=== PATIENT | female | born 1980 | race Caucasian/White ===

== ENCOUNTER 2017-01-16 17:27 | Emergency (ER) | payer BC, MEDICAID ==
[2017-01-16] MEDS ORDERED: ALBUTEROL SULFATE/IPRATROPIUM 3 ML NEBU IH ONE ×3 (18:12→18:16)
--- NOTE | 2017-01-16 18:14 | ERNOTE ---
Date of Service: 01/16/17 Time Seen by Provider: 01/16/17 18:13 Stated Complaint: SOB Presenting Symptoms:: cough, runny nose Source: patient Exam Limitations: no limitations Immunizations: IMMUNIZATION HX Immunizations Up to Date Yes History of Influenza Vaccine No Hx Pneumococcal Vaccination No Allergies/Adverse Reactions: Allergies aripiprazole [From Abilify] Allergy (Severe, Verified 01/16/17 17:37) Anaphylaxis ciprofloxacin HCl [From Ciprodex] Allergy (Severe, Verified 01/16/17 17:37) Hives dexamethasone [From Ciprodex] Allergy (Severe, Verified 01/16/17 17:37) Hives vancomycin Allergy (Severe, Verified 01/16/17 17:37) Hives Home Medications: HOME MEDICATIONS Dextroamphetamine/Amphetamine [Adderall 30 mg Tablet] 30 mg PO DAILY 08/28/16 [ Last Taken Unknown] Ranitidine HCl [Zantac] 150 mg PO BID 08/29/16 [Last Taken Unknown] Acetaminophen [Tylenol] 650 mg PO Q6H PRN #0 tablet 08/30/16 [Last Taken Unknown ] Albuterol Sulfate/Ipratropium [Duoneb 2.5-0.5MG/3ML Soln] 3 ml IH QID PRN #100 nebu 08/30/16 [Last Taken Unknown] Guaifenesin/Pseudoephedrne HCl [Mucinex D ER 1,200-120 mg Tab] 1 tab PO Q12H PRN #24 tab 01/16/17 [Last Taken Unknown] predniSONE [Prednisone] 2 tab PO DAILY #14 tablet 01/16/17 [Last Taken Unknown] - History of Present Ilness Narrative: Presents with c/o SOB, wheezing, runny nose, and congestion for several days. Pt claims she has performed several neb treatments with Duoneb at home w/o lasting relief. Pt has h/o asthma and is a current smoker. Denies any fever, or chills. Timing: constant Severity: severe Modifying Factors - Improves: Reports: nothing Associated Symptoms: Reports: cough, shortness of breath, wheezing, nasal congestion, nasal drainage. Denies: dizziness, lightheadedness, earache, headache, sore throat, muscle aches, fever/chills Review of Systems - Review of Systems Constitutional: Present: no symptoms reported EYE: Present: no symptoms reported ENT: Present: See HPI Respiratory: Present: See HPI Cardiology: Present: no symptoms reported Gastrointestinal/Abdominal: Present: no symptoms reported Genitourinary: Present: no symptoms reported Musculoskeletal: Present: no symptoms reported Skin: Present: no symptoms reported Neurological: Present: no symptoms reported Endocrine: Present: no symptoms reported Hematologic/Lymphatic: Present: no symptoms reported Psych: Present: no symptoms reported All Other Systems: All systems neg except as marked - Patient's Past Medical History Patient History - Medical: ADHD Patient History - Cardiac/Respiratory: Asthma, COPD Patient History - Cancer: No Hx of Cancer Patient History - Surgical Procedures: Cholecystectomy, Patient History - Other: None - Family History Father Family History - Medical: , Cataracts, Liver Disease, Renal Failure, Other Mother Family History - Medical: History Unknown Family History - Cardiac/Respiratory: History Unknown Grandfather-Maternal Family History - Medical: Diabetes Type 2 Family History - Cardiac/Respiratory: Hypertension - Social History Living Situations: home Abuse History: No History of abuse Psych History: No pertinent hx Does anyone smoke in the home?: Yes Smoking Status: Current every day smoker Have you smoked in the past 12 months: Yes Alcohol Use: none Drug Use: none - Immunizations Immunizations Up to Date: Yes Hx Pneumococcal Vaccination: No History of Influenza Vaccine: No Physical Exam - Physical Exam General Appearance: Present: wd/wn, alert, no apparent distress Eye Exam: Normal inspection: bilateral, PERRL: bilateral, EOMI: bilateral Ears, Nose, Throat: Present: normal except -, nasal congestion, normal pharynx Neck: Present: normal inspection, nontender Respiratory: Present: no respiratory distress, wheezing Cardiovascular/Chest: Present: regular rate, rhythm, no murmur Neurological Exam: Present: alert, oriented Skin Exam: Present: normal color, warm/dry ED Progress - Vital Signs Patient's Vital Signs:: I have reviewed the patient's vital signs. Vital Signs: Vital Signs 01/16/17 17:33 Temperature 37.2 C Pulse Rate 97 Respiratory 20 Rate Blood Pressure 125/51 O2 Sat by Pulse 94 Oximetry - X-Ray X-Ray #1 X-Ray: chest - NAD Interpretation: Interp. by dc - NAD - Progress/Reassessment Chief Complaint: Upper Respiratory Symptoms Progress:: Improved - after treatment with xopenex and decadron. Departure - Departure Clinical Impression: Acute asthma exacerbation Qualifiers: Asthma severity: moderate persistent Qualified Code(s): J45.41 - Moderate persistent asthma with (acute) exacerbation URI (upper respiratory infection) Qualifiers: URI type: unspecified URI Qualified Code(s): J06.9 - Acute upper respiratory infection, unspecified Disposition: Home self-care Condition: Good Instructions: Upper Respiratory Infection, Adult, [id number], Asthma Attack Prevention Prescriptions: Guaifenesin/Pseudoephedrne HCl [Mucinex D ER 1,200-120 mg Tab] 1 tab PO Q12H PRN #24 tab PRN Reason: Congestion, runny nose, cough predniSONE [Prednisone] 2 tab PO DAILY #14 tablet
[2017-01-16] MEDS ORDERED: LEVALBUTEROL HCL 1.25 MG/3 ML AMPUL IH ONE ×2 (18:23→18:30)
[2017-01-16] MEDS ORDERED: DEXAMETHASONE SOD PHOSPHATE 10 MG/ML VIAL IM ONE (18:24)
[2017-01-16] MEDS ORDERED: DEXAMETHASONE SOD PHOSPHATE 10 MG/ML VIAL ONE (18:29)
--- OUTSIDE RECORDS SUMMARY | 2017-01-16 18:33 | XMS REPORT | Continuity of Care Document ---
:1980 Author Organization [facility] ([facility]) Address [place] [address] Phone [phone] Care Team Providers Name Role Phone Tim Kingston Primary Care Provider [phone] Source Comments This disclosure is being made pursuant to the Care Everywhere program, applicable federal and state laws, and may not contain all informaitonavailable regarding this patient.[facility] ([facility]) Active Allergies and Adverse Reactions No Known Allergies Current Medications Prescription Sig. Disp. Refills Start Date End Date Status VITS Take by mouth. Active W-CA,FE,FA,<1MG, ( VITAMIN PO) HYDROCODONE Take by mouth. Active BIT/HOMATROPINE (HYDROCODONE COMPOUND PO) ALBUTEROL INH Use by Active inhalation. Active Problems Currently Estimated Date of Delivery Comments Yes No additional problems on file Social History Tobacco Use Types Packs/Day Years Used Date Current Every Day Smoker Comments:7 per day- decreasing this Alcohol Use Drinks/Week oz/Week Comments No Last Filed Vital Signs Vital Sign Reading Time Taken Blood Pressure 135/66 06/04/2012 1:32 PM CDT Pulse 82 06/04/2012 1:32 PM CDT Temperature - - Respiratory Rate - - Height - - Weight 105 kg (231 lb 7.7 oz) 06/04/2012 1:32 PM CDT Body Mass Index - - Oxygen Saturation - - Plan of Care Health Maintenance Due Date Last Done Comments Hepatitis B Vaccine (1 of 3 - Primary Series) 1980 Tdap Vaccine 1991 Lipid Disorder Screening 1998 MMR Vaccine 1998 Td Vaccine 1998 Varicella Vaccine (1 of 2 - Adult - No Evidence of 1998 Immunity) Pneumococcal Vaccine (1 of 1 - PPSV23) 1999 Cervical Cancer Screening 2010 Influenza Vaccine: Seasonal (#1) 06/05/2016 Results from Last 3 Months Not on file
[2017-01-16 19:58] VITALS: BP 160/110
== END 2017-01-16 20:10 | disposition home or self-care (01) ==
LOC: ER 17:27
DX: J45.41 Moderate persistent asthma with (acute) exacerbation (principal); J06.9 Acute upper respiratory infection, unspecified; F17.210 Nicotine dependence, cigarettes, uncomplicated; F90.9 Attention-deficit hyperactivity disorder, unspecified type

== ENCOUNTER 2019-07-16 11:22 | Observation (INO) ==
[2019-07-16] MEDS ORDERED: ALBUTEROL SULFATE 2.5 MG/0.5 ML VIAL.NEB IH ONE ×2 (11:27→11:37)
--- NOTE | 2019-07-16 11:42 | ERNOTE ---
Dyspnea - General Presenting Symptoms: shortness of breath Time Seen by Provider: 07/16/19 11:27 Source: patient Exam Limitations: no limitations - Immun/Allergies/Home Medications Immunizations: IMMUNIZATION HX Immunizations Up to Date No: Unknown History of Influenza Vaccine More Information Required Hx Pneumococcal Vaccination Yes Allergies/Adverse Reactions: Allergies aripiprazole [From Abilify] Allergy (Severe, Verified 07/16/19 11:36) Anaphylaxis ciprofloxacin HCl [From Ciprodex] Allergy (Severe, Verified 07/16/19 11:36) Hives vancomycin Allergy (Severe, Verified 07/16/19 11:36) Hives Home Medications: HOME MEDICATIONS Dextroamphetamine/Amphetamine [Adderall 30 mg Tablet] 30 mg PO DAILY 08/28/16 [Last Taken Unknown] Acetaminophen [Tylenol] 650 mg PO Q6H PRN #0 tablet 08/30/16 [Last Taken Unknown] Albuterol Sulfate/Ipratropium [Duoneb 2.5-0.5MG/3ML Soln] 3 ml IH QID PRN #100 nebu 08/30/16 [Last Taken Unknown] Methylprednisolone [Medrol Dosepak] 4 mg PO DAILY #21 tab.ds.pk 03/21/18 [Last Taken Unknown] - History of Present Illness Narrative: Patient has been short of breath for a few days, symptoms got significantly worse last night, has a history of COPD and past smoking. She had been spacing out her advair as she had been without insurance for a while. She saw her PCP this morning and was given an injection of steroid and breathing treatment, states that her O2 sat was 88 initially, 94% at discharge. He symptoms continued to worsen so she came to the ER. It has been years since her symptoms were this bad and at that time she was diagnosed with pneumonia Severity: severe Treatment [employer]OR: albuterol Initiating event: Denies: upper resp illness, exposure to smoke Frequency of episodes: Reports: occassional episodes Modifying Factors - (Improves): Reports: albuterol Modifying Factors (Worsens): Reports: activity Associated Symptoms-Dyspnea: Reports: cough, wheezing. Denies: fever/chills, chest pain/discomfort Prior Treatment: Reports: recently seen, previous episodes Review of Systems - Review of Systems Constitutional: Present: chills, malaise. Absent: recent illness, fever ENT: Absent: nose congestion, sore throat Respiratory: Present: See HPI, shortness of breath, cough - mainly dry Cardiology: Absent: chest pain Gastrointestinal/Abdominal: Absent: nausea, vomiting, abdominal pain Genitourinary: Present: no symptoms reported Musculoskeletal: Absent: back pain Neurological: Absent: headache Medical History (Updated 07/16/19 @ 11:34 by Rachele Tran RN) COPD (chronic obstructive pulmonary disease) Surgical History: Surgical History (Updated 07/16/19 @ 11:35 by Rachele Tran, RN) History of delivery x5 History of cholecystectomy Family History: Family History (Updated 07/16/19 @ 11:35 by Rachele Tran RN) Other Unknown family medical history Social History: (Last Updated 07/16/19 @ 11:36 by Rachele Tran RN) Tobacco: Smoking Status: Former smoker second hand exposure: Yes who is smoking: other quit status: quit date established Alcohol: alcohol intake: never Substance Use: substance use type: does not use Physical Exam - Physical Exam General Appearance: Present: wd/wn, alert, moderate distress, obese Head Exam: Present: normal inspection Ears, Nose, Throat: Present: normal ENT inspection, normal pharynx Respiratory: Present: respiratory distress - increased work of breathing, speaks in 2 word sentences, decreased breath sounds, expiration (prolonged), wheezing Cardiovascular/Chest: Present: no murmur, tachycardia Gastrointestinal/Abdominal: Present: normal bowel sounds, nontender, nondistended, soft Extremity Exam: Present: no edema Neurological Exam: Present: alert, oriented, normal mood/affect Skin Exam: Present: normal color, warm/dry Progress - Results and Orders Patient's Lab Results:: I have reviewed the patient's lab results. - Vital Signs Patient's Vital Signs:: I have reviewed the patient's vital signs. Vital Signs: Vital Signs 07/16/19 11:30 07/16/19 11:38 Temperature 36.7 C Pulse Rate 129 H 129 H Respiratory Rate 33 H Blood Pressure 129/78 O2 Sat by Pulse Oximetry 92 L - EKG EKG #1 EKG: NSR - sinus tachycardia, no acute change EKG read: Interp. by me - X-Ray X-Ray #1 X-Ray: chest - no acute changes Interpretation: Reviewed by me - Progress/Reassessment Progress Note-Subjective: 07/16/19 11:50 slightly improved air movement after albuterol, slight working hard, two word sentences discussed with Dr Velázquez, gave patient 80mg depot medrol and terbutaline and well as Rx for antibiotic (which the patient didn't get a chance to fill yet) 07/16/19 13:08 improved air movement, patient still working hard with RR in 30's discussed test results which don't show pneumonia, will give steroids a little more time to start working and possibly discharge 07/16/19 13:[address] Franco, okay to admit for observation Departure Clinical Impression: Acute exacerbation of chronic obstructive airways disease - Departure Disposition: Still a patient Condition: Stable
[2019-07-16] MEDS ORDERED: METHYLPREDNISOLONE SOD SUCC/PF 125 MG/2 ML VIAL IV ONE (11:46)
[2019-07-16] MEDS ORDERED: ALBUTEROL SULFATE/IPRATROPIUM 3 ML NEBU IH ONE (11:49)
[2019-07-16 11:55] LABS: Hematocrit 42.1 % (37.0-47.0); Hemoglobin 14.1 gm/dL (12.5-16.0); Mean Cell Volume 92.1 fl (78-100); Mean Corpuscular Hemoglobin 30.9 pg (27-31); Mean Corpuscular Hgb Conc 33.5 g/dl (32-36); Mean Platelet Volume 9.1 fl (8-12.5); Neutrophil # 12.7 K/mm3 (1.3-6.0); Neutrophil % 79.1 % (42-75.0); Platelet Count 276 K/mm3 (150-450); Red Blood Count 4.57 M/mm3 (4.2-5.4); Red Cell Distribution Width 13.4 % (11.5-14.0); White Blood Count 16.1 K/mm3 (4.0-10.5)
[2019-07-16 12:13] LABS: Troponin I Less than 0.017 ng/mL (0.00-0.10)
[2019-07-16 12:15] LABS: ALT 66 U/L (19-67); AST 128 U/L (0-48); Albumin * 3.6 gm/dl (3.4-5.0); Alkaline Phosphatase * 107 U/L (50-170); Anion Gap 16.7 mmol/L (6.8-13.8); BNP * 16 pg/mL (5-150); BUN/Creatinine Ratio 16.5 (9.0-21.6); Bilirubin, Total 0.4 mg/dL (0.0-1.1); Blood Urea Nitrogen 14 mg/dL (3-23); Ca. Corrected For Albumin 8.7 mg/dL (8.4-10.2); Calcium * 8.7 mg/dL (7.9-10.9); Carbon Dioxide 22.1 mmol/L (24-32.6); Chloride 103 mmol/L (97-106); Glucose * 141 mg/dL (70-110); Potassium 3.8 mmol/L (3.4-4.6); Sodium 138 mmol/L (132-142); Total Protein 7.4 gm/dL (6.2-8.2)
[2019-07-16] MEDS ORDERED: ALBUTEROL SULFATE 2.5 MG/0.5 ML VIAL.NEB IH PRN (13:47)
[2019-07-16] MEDS ORDERED: ALBUTEROL SULFATE/IPRATROPIUM 3 ML NEBU IH SCH (14:00)
[2019-07-16] MEDS ORDERED: ALBUTEROL SULFATE/IPRATROPIUM 3 ML NEBU IH PRN (17:03)
--- NOTE | 2019-07-16 17:05 | HP ---
Chief Complaint - Chief Complaint Date of Service: 07/16/19 Time of Service: 16:23 Chief Complaint: Shortness of breath History of Present Illness: 88-year-old with history of COPD supposed to be on home oxygen and attention deficit disorder presents with complaints of shortness of breath x1 day. She presented to her primary care physician's office this morning and was treated with intramuscular steroid injection. When she returned home she told her she still could not breathe and had him bring her to the emergency department. Chest x-ray showed no acute cardiopulmonary disease. In the ER her vitals showed tachycardia tachypnea with increased work of breathing, oxygen saturation in the low 90s on room air. She also had a leukocytosis which may be secondary to the steroids. She was admitted for COPD exacerbation and was given an IV dose of Solu-Medrol and multiple breathing treatments she is been admitted for observation. Medical History (Updated 07/16/19 @ 17:05 by Lisa Franco MD) ADD (attention deficit disorder) COPD (chronic obstructive pulmonary disease) Surgical History: Surgical History (Updated 07/16/19 @ 11:35 by Rachele Tran RN) History of delivery x5 History of cholecystectomy Family History: Family History (Updated 07/16/19 @ 11:35 by Rachele Tran RN) Other Unknown family medical history Social History: (Last Reviewed 07/16/19 @ 13:55 by Beatrice Cook RN) Tobacco: Smoking Status: Former smoker second hand exposure: Yes who is smoking: other quit status: quit date established Alcohol: alcohol intake: never Substance Use: substance use type: does not use Review Of Systems (GEN) - Review of Systems Generalized/Overall Review: Absent: Chills, Fever EENTM: Absent: Eye Pain, Ear Pain Respiratory: Present: Cough, Shortness of Breath Cardiac: Absent: Chest Pain Abdominal: Absent: Abdominal Pain Misc: All systems neg except as marked Immunizations: IMMUNIZATION HX Immunizations Up to Date No: Unknown History of Influenza Vaccine More Information Required Hx Pneumococcal Vaccination Yes Allergies/Adverse Reactions: Allergies Allergy/AdvReac Type Severity Reaction Status Date / Time aripiprazole [From Abilify] Allergy Severe Anaphylaxis Verified 07/16/19 13:56 ciprofloxacin HCl Allergy Severe Hives Verified 07/16/19 13:56 [From Ciprodex] vancomycin Allergy Severe Hives Verified 07/16/19 13:56 Home Medications: HOME MEDICATIONS Albuterol Sulfate/Ipratropium [Duoneb 2.5-0.5MG/3ML Soln] 3 ml IH QID PRN #100 nebu 08/30/16 [Last Taken Unknown] Albuterol Sulfate [Albuterol Sulfate Hfa] 8.5 gm INHALATION PRN 07/16/19 [Last Taken Unknown] Fluticasone Propion/Salmeterol [Advair 250-50 Diskus] 1 puff INHALATION BID 07/16/19 [Last Taken Unknown] Montelukast Sodium [Singulair] 10 mg PO DAILY 07/16/19 [Last Taken Unknown] Exam - Exam Vital Signs: Vital Signs - Last Taken Temp 37.1 C 07/16/19 14:28 Pulse 102 H 07/16/19 14:33 Resp 28 H 07/16/19 14:33 BP 143/86 H 07/16/19 14:28 Pulse Ox 91 L 07/16/19 14:28 Constitutional: Present: Alert, Cooperative, Well developed, Well nourished, No distress, Obese ENT Exam: Present: hearing grossly normal Eye Exam: bilateral eye: normal inspection, PERRL Neck: Present: trachea midline. Absent: lymphadenopathy (R), lymphadenopathy (L) Back Exam: Present: normal inspection, no CVA tenderness, no vertebral tenderness Respiratory: Present: no accessory muscle use, wheezing - Diffuse expiratory wheezing throughout all lung sherman. Absent: crackles, rhonchi Cardiovascular/Chest: Present: no edema, no murmur, tachycardia Peripheral Pulses: dorsalis-pedis (R): 2+, dorsalis-pedis (L): 2+ Abdomen: Present: Normal bowel sounds, soft, nontender, obese Extremity: Present: no pedal edema Skin Exam: Present: normal color, warm/dry Neurologic: Present: alert, normal mood/affect Appearance: Present: appropriate appearance, appropriate insight Eye contact: Present: cooperative, good eye contact Thoughts: Present: normal thought pattern, normal mood /affect Diagnostic Studies: Abnormal Lab Results 07/16/19 07/16/19 Range/Units 11:48 11:48 WBC 16.1 H (4.0-10.5) K/mm3 Immature Gran % (Auto) 0.90 H (0.001-0.429) % Immature Gran # (Auto) 0.15 H (0.000-0.0310) K/mm3 Neutrophils % 79.1 H (42-75.0) % Lymphocytes % 10.4 L (20-51) % Eosinophils % 3.9 H (0.0-3.0) % Neutrophils # 12.7 H (1.3-6.0) K/mm3 Carbon Dioxide 22.1 L (24-32.6) mmol/L Anion Gap 16.7 H (6.8-13.8) mmol/L Random Glucose 141 H (70-110) mg/dL AST 128 H (0-48) U/L Laboratory Results WBC 16.1 K/mm3 (4.0-10.5) H 07/16/19 11:48 RBC 4.57 M/mm3 (4.2-5.4) 07/16/19 11:48 Hgb 14.1 gm/dL (12.5-16.0) 07/16/19 11:48 Hct 42.1 % (37.0-47.0) 07/16/19 11:48 MCV 92.1 fl (78-100) 07/16/19 11:48 MCH 30.9 pg (27-31) 07/16/19 11:48 MCHC 33.5 g/dl (32-36) 07/16/19 11:48 RDW 13.4 % (11.5-14.0) 07/16/19 11:48 Plt Count 276 K/mm3 (150-450) 07/16/19 11:48 MPV 9.1 fl (8-12.5) 07/16/19 11:48 Immature Gran % (Auto) 0.90 % (0.001-0.429) H 07/16/19 11:48 Immature Gran # (Auto) 0.15 K/mm3 (0.000-0.0310) H 07/16/19 11:48 79.1 % (42-75.0) H 07/16/19 11:48 10.4 % (20-51) L 07/16/19 11:48 5.3 % (0.0-9) 07/16/19 11:48 3.9 % (0.0-3.0) H 07/16/19 11:48 0.4 % (0.0-1.0) 07/16/19 11:48 Nucleated RBC % 0.0 k/mm3 (0-1) 07/16/19 11:48 12.7 K/mm3 (1.3-6.0) H 07/16/19 11:48 1.67 k/mm3 (1.5-3.5) 07/16/19 11:48 0.9 k/mm3 (0.0-1.0) 07/16/19 11:48 0.6 k/mm3 (0.0-0.7) 07/16/19 11:48 Absolute Basophils 0.1 k/mm3 (0.0-0.1) 07/16/19 11:48 Sodium 138 mmol/L (132-142) 07/16/19 11:48 139 mmol/L (130-142) 07/16/19 11:48 Potassium 3.8 mmol/L (3.4-4.6) 07/16/19 11:48 Chloride 103 mmol/L (97-106) 07/16/19 11:48 Carbon Dioxide 22.1 mmol/L (24-32.6) L 07/16/19 11:48 16.7 mmol/L (6.8-13.8) H 07/16/19 11:48 BUN 14 mg/dL (3-23) 07/16/19 11:48 0.85 mg/dL (0.4-1.4) 07/16/19 11:48 Est GFR (Non-Af Amer) 80 mL/min (60-130) 07/16/19 11:48 16.5 (9.0-21.6) 07/16/19 11:48 141 mg/dL (70-110) H 07/16/19 11:48 Calcium 8.7 mg/dL (7.9-10.9) 07/16/19 11:48 Calcium Adj for Albumin 8.7 mg/dL (8.4-10.2) 07/16/19 11:48 0.4 mg/dL (0.0-1.1) 07/16/19 11:48 AST 128 U/L (0-48) H 07/16/19 11:48 ALT 66 U/L (19-67) 07/16/19 11:48 107 U/L (50-170) 07/16/19 11:48 Less than 0.017 ng/mL (0.00-0.10) 07/16/19 11:48 B-Natriuretic Peptide 16 pg/mL (5-150) 07/16/19 11:48 7.4 gm/dL (6.2-8.2) 07/16/19 11:48 3.6 gm/dl (3.4-5.0) 07/16/19 11:48 Assessment/Plan - Narrative Narrative: 88-year-old with history of COPD supposed to be on home oxygen and attention deficit disorder presents with complaints of shortness of breath x1 day. In the ER her vitals showed tachycardia tachypnea with increased work of breathing, oxygen saturation in the low 90s on room air. She also had a leukocytosis which may be secondary to the steroids. She was admitted for COPD exacerbation and wa s given an IV dose of Solu-Medrol and multiple breathing treatments she is been admitted for observation. She feels better after getting the Solu-Medrol and duo nebs. Continue with duo nebs as needed I will start her on prednisone 40 mg daily for 5 more days. - Assessment/Plan (1) Respiratory distress, acute Problem: Acute (2) Asthma Problem: Acute Qualifiers: Asthma severity: unspecified severity Asthma complication type: with acute exacerbation Qualified Code(s): J45.901 - Unspecified asthma with (acute) exacerbation (3) Acute exacerbation of chronic obstructive airways disease Problem: Acute (4) ADHD (attention deficit hyperactivity disorder) Problem: Chronic Qualifiers: Attention deficit-hyperactivity disorder type: predominantly inattentive Qualified Code(s): F90.0 - Attention-deficit hyperactivity disorder, predominantly inattentive type
[2019-07-16] MEDS ORDERED: ALBUTEROL SULFATE 200 PUFF INHALER IH SCH (17:15)
[2019-07-16] MEDS: ALBUTEROL SULFATE/IPRATROPIUM 3 ML NEBU IH SCH (18:12)
[2019-07-16] MEDS: FLUTICASONE PROPION/SALMETEROL 14 PUFF DISK.W.DEV IH SCH (21:08)
[2019-07-16] MEDS: guaiFENesin/DEXTROMETHORPHAN SYRUP PO PRN (21:19)
[2019-07-16] MEDS ORDERED: MONTELUKAST SODIUM 10 MG TABLET PO SCH (21:45)
[2019-07-17] MEDS: ALBUTEROL SULFATE/IPRATROPIUM 3 ML NEBU IH SCH ×3 (00:21→14:40)
[2019-07-17] MEDS: guaiFENesin/DEXTROMETHORPHAN SYRUP PO PRN (02:53)
[2019-07-17 05:39] LABS: Hematocrit 40.8 % (37.0-47.0); Hemoglobin 13.5 gm/dL (12.5-16.0); Mean Cell Volume 91.5 fl (78-100); Mean Corpuscular Hemoglobin 30.3 pg (27-31); Mean Corpuscular Hgb Conc 33.1 g/dl (32-36); Mean Platelet Volume 9.4 fl (8-12.5); Neutrophil # 15.1 K/mm3 (1.3-6.0); Neutrophil % 86.7 % (42-75.0); Platelet Count 319 K/mm3 (150-450); Red Blood Count 4.46 M/mm3 (4.2-5.4); Red Cell Distribution Width 13.5 % (11.5-14.0); White Blood Count 17.4 K/mm3 (4.0-10.5)
[2019-07-17 05:57] LABS: Albumin * 3.5 gm/dl (3.4-5.0); Anion Gap 15.4 mmol/L (6.8-13.8); BUN/Creatinine Ratio 10.6 (9.0-21.6); Bilirubin, Total 0.3 mg/dL (0.0-1.1); Ca. Corrected For Albumin 9.3 mg/dL (8.4-10.2); Calcium * 9.2 mg/dL (7.9-10.9); Carbon Dioxide 23.9 mmol/L (24-32.6); Potassium 4.3 mmol/L (3.4-4.6); Total Protein 7.2 gm/dL (6.2-8.2)
[2019-07-17] MEDS: FLUTICASONE PROPION/SALMETEROL 14 PUFF DISK.W.DEV IH SCH (08:41)
[2019-07-17] MEDS ORDERED: predniSONE 20 MG TABLET PO SCH (09:00)
[2019-07-17] MEDS ORDERED: MONTELUKAST SODIUM 10 MG TABLET PO SCH (09:00)
--- NOTE | 2019-07-17 10:30 | DS ---
(1) Respiratory distress, acute Problem: Resolved (2) Asthma Problem: Acute Qualifiers: Asthma severity: unspecified severity Asthma complication type: with acute exacerbation Qualified Code(s): J45.901 - Unspecified asthma with (acute) exacerbation (3) Acute exacerbation of chronic obstructive airways disease Problem: Resolved (4) ADHD (attention deficit hyperactivity disorder) Problem: Chronic Qualifiers: Attention deficit-hyperactivity disorder type: predominantly inattentive Qualified Code(s): F90.0 - Attention-deficit hyperactivity disorder, predominantly inattentive type Description of Stay: 88-year-old with history of COPD supposed to be on home oxygen and attention deficit disorder presents with complaints of shortness of breath x1 day. In the ER her vitals showed tachycardia tachypnea with increased work of breathing, oxygen saturation in the low 90s on room air. She also had a leukocytosis which may be secondary to the steroids. She was admitted for COPD exacerbation and was given an IV dose of Solu-Medrol and multiple breathing treatments she is been admitted for observation. She feels better today after the steroids and duo nebs. She is stable to go home today. I will send her her on prednisone 40 mg daily for 5 more days. Procedures Performed: none Results and Findings: Lab Pending Results 07/16/19 11:48: WBC 16.1 H, RBC 4.57, Hgb 14.1, Hct 42.1, MCV 92.1, MCH 30.9, MCHC 33.5, RDW 13.4, Plt Count 276, MPV 9.1, Immature Gran % (Auto) 0.90 H, Immature Gran # (Auto) 0.15 H, Neutrophils % 79.1 H, Lymphocytes % 10.4 L, Monocytes % 5.3, Eosinophils % 3.9 H, Basophils % 0.4, Nucleated RBC % 0.0, Neutrophils # 12.7 H, Lymphocytes # 1.67, Monocytes # 0.9, Eosinophils # 0.6, Absolute Basophils 0.1 07/16/19 11:48: Sodium 138, Plasma Sodium 139, Potassium 3.8, Chloride 103, Carbon Dioxide 22.1 L, Anion Gap 16.7 H, BUN 14, Creatinine 0.85, Est GFR (Non- Af Amer) 80, BUN/Creatinine Ratio 16.5, Random Glucose 141 H, Calcium 8.7, Calcium Adj for Albumin 8.7, Total Bilirubin 0.4, AST 128 H, ALT 66, Alkaline Phosphatase 107, Troponin I Less than 0.017, B-Natriuretic Peptide 16, Total Pr otein 7.4, Albumin 3.6 07/17/19 05:20: WBC 17.4 H, RBC 4.46, Hgb 13.5, Hct 40.8, MCV 91.5, MCH 30.3, MCHC 33.1, RDW 13.5, Plt Count 319, MPV 9.4, Immature Gran % (Auto) 0.90 H, Immature Gran # (Auto) 0.16 H, Neutrophils % 86.7 H, Lymphocytes % 7.5 L, Monocytes % 4.8, Eosinophils % 0.0, Basophils % 0.1, Nucleated RBC % 0.0, Neutrophils # 15.1 H, Lymphocytes # 1.30 L, Monocytes # 0.8, Eosinophils # 0.0, Absolute Basophils 0.0 07/17/19 05:20: Sodium 139, Plasma Sodium 140, Potassium 4.3, Chloride 104, Carbon Dioxide 23.9 L, Anion Gap 15.4 H, BUN 9, Creatinine 0.85, Est GFR (Non-Af Amer) 80, BUN/Creatinine Ratio 10.6, Random Glucose 156 H, Calcium 9.2, Calcium Adj for Albumin 9.3, Total Bilirubin 0.3, AST 22, ALT 47, Alkaline Phosphatase 89, Total Protein 7.2, Albumin 3.5 Discharge Location: Home Disposition: Home self-care Condition: Stable Discharge Activity: Activity as tolerated Discharge Diet: General/regular food Referrals: Frankie Velázquez DO [Primary Care Provider] - Prescriptions (Any new or edited meds): predniSONE [Prednisone] 40 mg PO DAILY #5 tab Complete Home Medications List: Complete Home Medication List: Albuterol Sulfate/Ipratropium [Duoneb 2.5-0.5MG/3ML Soln] 3 ml IH QID PRN #100 nebu 08/30/16 Albuterol Sulfate [Albuterol Sulfate Hfa] 8.5 gm INHALATION PRN 07/16/19 Fluticasone Propion/Salmeterol [Advair 250-50 Diskus] 1 puff INHALATION BID 07/16/19 Montelukast Sodium [Singulair] 10 mg PO DAILY 09/11/19 predniSONE [Prednisone] 40 mg PO DAILY #5 tab 07/17/19
[2019-07-17 13:34] VITALS: BP 125/72
== END 2019-07-17 13:20 | disposition home or self-care (01) ==
LOC: ER 11:22 → MS 11:22
PROVIDERS: ADMIT Internal Medicine; ATTEND Internal Medicine
CPT/HCPCS: 36415; 71020; 71046; 80053; 83519; 83880; 84484; 85025; 93005; 94640; 94664; 94760; 96374; 99285; G0378